=== PATIENT | female | born 1940 | race Caucasian/White ===

== ENCOUNTER → 2017-04-05 | Outpatient (CLI) | payer MEDICARE ==
[~2017-04-05] MED LIST: ALPR0.25 PO; AMLO5TAB2 PO; ASPI-516 PO; ATOR80TA45 PO; EZET10 PO; HYDR-3533 PO; HYDR-3535 PO; LOSA100T PO; METO1TAB43 PO; ROPI3TAB PO
--- NOTE | 2017-04-05 13:09 | RADRPT ---
EXAM DATE/TIME: 04/05/2017 12:52 [facility] COMPARISON: CHEST PA & LAT, November 29, 2014, 14:55. INDICATIONS : Evaluate for pneumonia, pneumothorax, or communicable disease. Pre op for laminectomy on April 09. MEDICAL HISTORY : Hypertension. Hypercholesterolemia. Coronary artery disease. Hyperlipidemia. SURGICAL HISTORY : CABG. Appendectomy. Tubal ligation. Cardiac cath. ENCOUNTER: Initial ACUITY: 1 day PAIN SCORE: Non-responsive. LOCATION: Bilateral chest FINDINGS: Interval median sternotomy. No new focal pleural or parenchymal opacities. Cardiac silhouette is bord alvin enlarged. Remainder of exam is unchanged. CONCLUSION: 1. Borderline cardiomegaly. 2. Postsurgical features. 3. No acute abnormality or significant interval change. Anish Pryor MD on April 05, 2017 at 13:05 Board Certified Radiologist. This report was verified electronically.
[2017-04-05 13:19] LABS: AUTOMATED NEUTROPHIL # 3.7 TH/MM3 (1.8-7.7); BASOPHIL % 0.6 % (0.0-2.0); EOSINOPHIL # 0.1 TH/MM3 (0-0.4); EOSINOPHIL % 1.4 % (0.0-4.0); HEMATOCRIT 35.9 % (35.0-46.0); LYMPH % 28.7 % (9.0-44.0); LYMPHOCYTE # 1.8 TH/MM3 (1.0-4.8); MEAN CELL VOLUME 84.9 FL (80.0-100.0); MEAN CORPUSCULAR HEMOGLOBIN 28.3 PG (27.0-34.0); MEAN CORPUSCULAR HGB CONC 33.3 % (32.0-36.0); MEAN PLATELET VOLUME 8.1 FL (7.0-11.0); MONO % 10.6 % (0.0-8.0); MONOCYTE # 0.7 TH/MM3 (0-0.9); NEUT % 58.7 % (16.0-70.0); PLATELET COUNT 265 TH/MM3 (150-450); RED BLOOD COUNT 4.22 MIL/MM3 (4.00-5.30); RED CELL DISTRIBUTION WIDTH 15.1 % (11.6-17.2); WHITE BLOOD COUNT 6.3 TH/MM3 (4.0-11.0)
[2017-04-05 13:19] LABS: BACTERIA, URINE RARE /hpf; BILIRUBIN, URINE NEG (NEG); BLOOD, URINE NEG (NEG); GLUCOSE,URINE NEG (NEG); KETONE, URINE NEG (NEG); MUCUS URINE FEW /lpf (OCC); NITRITE,URINE NEG (NEG); PH, URINE 6.5 (5.0-8.5); URINE COLOR LIGHT-YELLOW (YELLW/STRAW); URINE LEUKOCYTE ESTERASE NEG (NEG)
[2017-04-05 13:26] LABS: PROTHROMBIN TIME - PATIENT 10.9 SEC (9.8-11.6)
[2017-04-05 13:43] LABS: ALBUMIN 3.7 GM/DL (3.4-5.0); ALT (GPT) 29 U/L (10-53); AST (GOT) 23 U/L (15-37); BICARBONATE 26.2 MEQ/L (21.0-32.0); BLOOD UREA NITROGEN 16 MG/DL (7-18); CALCIUM 8.9 MG/DL (8.5-10.1); CHLORIDE 99 MEQ/L (98-107); CREATININE 0.58 MG/DL (0.50-1.00); GLOMERULAR FILTRATION RATE 101 ML/MIN (>89); GLUCOSE,FASTING 99 MG/DL (74-99); SODIUM (NA) 133 MEQ/L (136-145)
[2017-04-05 13:46] LABS: ALKALINE PHOSPHATASE 114 U/L (45-117); TOTAL BILIRUBIN ADULT 0.4 MG/DL (0.2-1.0); TOTAL PROTEIN 7.6 GM/DL (6.4-8.2)
== END ==
LOC: CPRE 11:46
PROVIDERS: ATTEND Neurological Surgery
DX: Z01.810 Encounter for preprocedural cardiovascular examination (principal); Z01.811 Encounter for preprocedural respiratory examination; Z01.812 Encounter for preprocedural laboratory examination; Z79.01 Long term (current) use of anticoagulants; M48.062 Spinal stenosis, lumbar region with neurogenic claudication; M12.88 Other specific arthropathies, not elsewhere classified, other specified site
CPT/HCPCS: 36415; 71020; 80053; 81001; 85025; 85610; 85730

== ENCOUNTER → 2017-04-09 | Day surgery (SDC) | payer MEDICARE ==
--- NOTE | 2017-04-08 17:40 | MH ---
cc: GABINO GODOY,FRANK Dukes M.D. DATE OF ADMISSION: 04/09/2017 ADMITTING DIAGNOSIS: Lumbar spinal stenosis. HISTORY OF PRESENT ILLNESS This is a 76-year-old female who presented to us for evaluation of low back pain with radiation to bilateral buttocks and posterior lower extremities for the last 15 years. The patients symptoms have progressively gotten worse and have been severe over the last year. She states that she has been losing her balance and coordination. She denies any bowel or bladder incontinence. She has had physical therapy a year ago and she had a total knee done and they worked on her back. But she states that she was unable to tolerate this. She had one injection with pain management 15 years ago which helped for a little while. Pain with her activity and she has difficulty bending perform packaging specialist. She has cramps her legs. She denies any falls or weakness. She has a history of coronary artery disease and peripheral vascular disease and coronary artery bypass graft as well as history of bilateral carotid artery stenosis being monitored and she also has a history of left subclavian artery stenosis of the told to have a blood pressure taken in her right upper extremity secondary to this. The patient has seen her material worker who has cleared her for surgical intervention. Her material worker placed her in a moderate risk of cardiovascular complications during surgery. The patient is requesting that we proceed with surgical intervention. PAST MEDICAL HISTORY 1. Significant for coronary artery disease 2. Hypertension 3. Left subclavian artery stenosis requiring blood pressure checks in her right upper extremity, not her left. 4. Peripheral vascular disease. 5. History of bilateral carotid artery stenosis which is being monitored 6. Appendectomy in 1960 7. Tubal ligation 1981 8. Coronary stent in 2000 9. Coronary bypass x3 vessels 2014. 10. Right knee replacement 2016. 11. Cataract surgery in 2017. CURRENT MEDICATIONS She has taken 1. Amlodipine 5 mg p.o. daily. 2. Aspirin 81 mg 2 tablets p.o. daily. 3. Alprazolam 0.25 mg p.o. q.8 h. Anxiety. 4. Atorvastatin 80 mg p.o. q.h.s. 5. Ropinirole 3 mg p.o. daily. 6. Metoprolol ER 50 mg daily, anxiety 10 mg p.o. daily. 7. Losartan 100 mg p.o. daily. ALLERGIES TO MEDICATIONS She is allergic to OXYCODONE HYDROCHLOROTHIAZIDE FAMILY HISTORY Father is at 64 year's old had heart failure. Mother is at 81 years of COPD. She has a brother who is alive at 74. Another brother who is alive at 72 in good health. She has a sister is at 69 year's old had colon cancer. SOCIAL HISTORY She is retired. She is . She has one child. She does not smoke and quit smoking in 1969. She drinks zero to two drinks of alcohol daily. REVIEW OF SYSTEMS CONSTITUTIONAL: She denies any fever or chills. EAR, NOSE, AND THROAT: No pharyngitis, exudates or bloody drainage from nose. CARDIOVASCULAR: She denies any chest pain or palpitations. RESPIRATORY: No cough or shortness of breath. GENITOURINARY: No dysuria or hematuria. MUSCULOSKELETAL: Positive for low back pain and leg pain. SKIN: No rashes or pruritus. NEUROLOGIC: No difficulty with speech or memory. GASTROINTESTINAL: No nausea, vomiting, no abdominal pain. PSYCHIATRIC: Positive for anxiety depression symptoms. ENDOCRINE: No polyuria, polydipsia. HEMATOLOIC: No bruising or bleeding tendencies. PHYSICAL EXAMINATION HEAD, EYES, EARS, NOSE, AND THROAT: Normocephalic, atraumatic. NECK: Supple. No carotid bruits heard on auscultation. LUNGS: Auscultation of lungs clear to auscultation bilaterally. HEART: Regular rate rhythm, normal s1, s2. ABDOMEN: The abdomen is soft, nontender, positive bowel sounds. SKIN: The skin reveals no cyanosis or erythema. MUSCULOSKELETAL: She has 5/5 strength in the lower extremities. She ambulates without any assistive device. NEUROLOGIC: She is awake, alert, oriented. Cranial nerves II-XII grossly intact. His speech is fluent. Comprehension is good. Reflexes are very diminished in the lower extremities. DATA Data reviewed MRI of the lumbar spine from December 18, 2016 reveals severe L4-L5 spinal stenosis from a combination of facet ligamentum flavum hypertrophy and central disk protrusion. There is lesser degree of stenosis at the L3-L4 level. IMPRESSION: A 76 year-old female with a chronic history of low back pain with associated severe neurogenic claudication symptoms which are worse in the past year. She states that she gets symptoms with standing or walking even after a few minutes and she cannot walk more than half a block. She has undergone physical therapy which aggravated her symptoms. She has severe L4-L5 spinal stenosis with associated neurogenic claudication symptoms. PLAN We have discussed treatment options with the patient which include continued conservative serve of treatment measures versus surgical intervention. The procedure as well as the risk benefit, alternatives, and recovery time were explained in detail with the patient. We have discussed the risks involved with surgery which include but not limited to bleeding, infection, muscle weakness voice hoarseness, difficulty swallowing, heart attack, stroke blood clots, scar tissue formation among others. The patient states that she understands the procedure as well as the risks involved. She is requesting that we proceed and she was therefore scheduled accordingly. Frank Parsons MD DICTATED BY: FRITZ Paniagua/brandy /4:45 PM /5:09 PM
[~2017-04-09] VITALS: Ht 165.1 cm; Wt 69.9 kg
[~2017-04-09] MED LIST changes: +BUPIVACAINE/EPINEPHRINE 0.5% 50 ML VIAL ONE; +CHLORHEXIDINE GLUCONATE 2 % 1 PACK (2 CLOTHS) TOPICAL PRN; +DO NOT ADM ANY ANTICOAGULANT DRUGS PRN; +GELFOAM SIZE 100 ONE; +GLYCOPYRROLATE 1 MG/5 ML SYRINGE IV PUSH ONE; -HYDR-3533 PO; +INSULIN HUMAN REGULAR 1,000 UNITS/10 ML VIAL SQ PRN; +LACTATED RINGER'S 1000 ML IV PRN; +LIDOCAINE HCL 1% PF 5 ML SYRINGE OTHER ONE; +METOPROLOL TARTRATE 25 MG TAB PO PRN; +MIDAZOLAM HCL 2 MG/2 ML VIAL IV ONE; +NEOSTIGMINE 3 MG/3 ML SYR IV ONE; +ONDANSETRON HCL 4 MG/2 ML VIAL IV PUSH ONE; +POVIDONE IODINE 5% (ANTISEPSIS KIT) 4 APPLICATIONS EACH NARE PRN; +PROPOFOL 200 MG/20 ML AMP IV ONE; +ROCURONIUM INJ 50 MG/5 ML SYRINGE IV PUSH ONE; +SODIUM CHLOR 0.9% 1000 ML INJ 1,000 ML IV SCH; +SODIUM CHLORID 0.9% 500 ML IV PRN; +THROMBIN (TOPICAL) 5,000 UNIT VIAL ONE; +VANCOMYCIN HCL 1000 MG ON-CALL/NS 250 ML IV SCH; +VANCOMYCIN HCL 1000 MG VIAL ONE; +ePHEDrine/NS 25 MG/5 ML SYR IV ONE; +methylPREDNISolone ACETATE 40 MG/ML VIAL ONE
--- NOTE | 2017-04-09 12:26 | PD.OP ---
Tato Spangler D.O. Operative Report Date of Surgery: Apr 09, 2017 Preoperative Diagnosis: Severe L4-5 spinal stenosis from facet and ligamentum flavum hypertrophy with low back pain and neurogenic claudication Postoperative Diagnosis: Same Procedure: Lumbar L4 and L5 decompressive laminectomies with medial facetectomies; microsurgical technique Surgeon: Frank Parsons M.D. Certified Pharmacist Assistant(s): Myranda Newton Operation and Findings: Following administration of general endotracheal anesthesia, patient received vancomycin 1 g intravenously. Sequential compression devices were placed for DVT prophylaxis. She was then turned in prone position on Krish frame and the Edwin table and all pressure points adequately padded. The lumbar region was then shaved and prepped with a Betadine and ChloraPrep. Sterile draping undertaken with Ioban. Midline incision overlying the L4-5 level was then made after infiltrating the skin with 0.5% Marcaine with epinephrine solution. The skin incision was made extending down through the fascia and then using the subperiosteal plane on the right side the muscular attachments to the spinous process and lamina were detached. Intraoperative fluoroscopy was used for level confirmation and further dissection undertaken using microtechnique with microscope magnification. The inferior portion of the L4 and portion of the L5 lamina was then drilled out and the underlying ligamentum flavum also removed. There was significant facet arthropathy noted and the medial portion of facet was also resected and the lateral recess decompressed. Epidural venous stasis which he with the bipolar cautery along with Gelfoam and thrombin and bone wax used at the laminotomy edges for hemostasis. With gentle thecal sac resection to the left L3 and L4 laminotomy, the right lateral recess was also decompressed with resection of the hypertrophied medial facets and ligamentum flavum for circumferential spinal canal decompression. The area was then copiously irrigated with vancomycin solution. The retractors removed and the muscle fascia proximal using 2-0 Vicryl interrupted stitches. 3-0 Vicryl subcuticular stitches were also placed in an interrupted fashion and planned skin closure was with Mastisol and Steri-Strips. A sterile dressing was then applied and the patient then turned in the supine position and extubated and taken to recovery room in stable condition. There were no intraoperative complications and all sponge and needle count was correct at the end of the procedure. Estimated blood loss about 50 cc. Frank Parsons MD Apr 09, 2017 12:26
[2017-04-09 14:05] VITALS: BP 153/63; PULSE 55; RESP 18; TEMP 97.5; O2SAT 99
--- NOTE | 2017-04-09 14:57 | RADRPT ---
EXAM DATE/TIME: 04/09/2017 10:11 [facility] COMPARISON: No previous studies available for comparison. INDICATIONS : L4-5 Laminectomy. MEDICAL HISTORY : Hypertension. SURGICAL HISTORY : Appendectomy. CABG. ENCOUNTER: Initial ACUITY: 1 day PAIN SCORE: Non-responsive. LOCATION: Lumbar spine. FINDINGS: FINDINGS: Single lateral view of the spine demonstrates the spine to be in anatomic alignment. A probe is in pl alan at the L4 and L5 levels. CONCLUSION: 1. Postsurgical changes as above. Rohan Hurley MD on April 09, 2017 at 14:54 Board Certified Radiologist. This report was verified electronically.
== END | disposition home or self-care (01) ==
LOC: HSDC 06:53
PROVIDERS: ATTEND Neurological Surgery
DX: M48.062 Spinal stenosis, lumbar region with neurogenic claudication (principal); M12.88 Other specific arthropathies, not elsewhere classified, other specified site; I10 Essential (primary) hypertension; I25.10 Atherosclerotic heart disease of native coronary artery without angina pectoris; Z95.1 Presence of aortocoronary bypass graft
CPT/HCPCS: 00630; 63047; 72020; 76000; J1030; J2250; J2405; J2710; J3010; J3370; J7050; J7120